=== PATIENT | male | born 1955 | race Caucasian/White ===

== ENCOUNTER 2022-02-19 02:01 | Day surgery (SDC) | payer MEDICARE, SELFPAY ==
[2022-02-11 11:31] VITALS: BMI 32.0
--- NOTE | 2022-02-18 17:11 | PM.HPGS ---
History of Present Illness History of Present Illness Consent: Risks, benefits, and alternatives have been discussed and questions answered. Patient agrees to proceed with procedure. Chief complaint: Hx of colon polyps Narrative: Bari Garcia is a 66 year old male Was referred for colon cancer screening. Three years ago he had a tubular adenoma removed from the descending colon Review of Systems Review of Systems: All systems reviewed & are unremarkable except as noted in HPI and below PMFSH Past Medical History Medical History Diabetes Hypothyroidism Obesity Osteoarthritis Social History Social History Smoking status: Never smoker Alcohol intake: current Drinks per week: 1 Substance use type: does not use Living arrangements: with family Spiritual care concerns: No Meds Home Medications and Allergies Home Medications Medication Instructions Recorded Confirmed Type cyanocobalamin (vitamin B-12) 1,000 mcg IM MONTHLY 02/11/22 02/19/22 History 1,000 mcg/mL injection solution levothyroxine 75 mcg tablet 75 mcg PO DAILY 02/11/22 02/19/22 History lovastatin 40 mg tablet 40 mg PO DAILY 02/11/22 02/19/22 History metformin 500 mg tablet,extended 500 mg PO DAILY 02/11/22 02/19/22 History release 24 hr Allergies Allergy/AdvReac Type Severity Reaction Status Date / Time No Known Allergies Allergy Verified 02/19/22 08:40 Exam Const: General: alert Orientation/consciousness: patient oriented x3 Resp: Auscultation: clear to auscultation bilaterally Cardio: Rhythm: regular rhythm GI: GI Palp: Yes Soft to palpation and No Tenderness to palpation present (GI) Neuro: General: patient oriented x3 Assessment and Plan Assessment and plan (1) Colon cancer screening: Code(s): Z12.11 - Encounter for screening for malignant neoplasm of colon Status: Acute Assessment and Plan: Please inform patient that the polyp(s) was/were the 'pre'-cancerous type. Colonoscopy should be repeated within 5 years
--- NOTE | 2022-02-19 08:07 | WPDANESEPPF ---
Anes - Initial Pre Proc Eval Procedure: Operation Date: 02/19/22 09:30 Proposed Procedures p Screening Colonoscopy - Nathaniel Luciano MD Date/Time: 02/19/22 08:07 Surgeon: Nathaniel Luciano MD Pre Op Diagnosis: Hx of colon polyps Patient Data Age: 66 Gender: M Height: 1.83 m Weight: 107 kg Allergies Allergy/AdvReac Type Severity Reaction Status Date / Time No Known Allergies Allergy Verified 02/19/22 08:40 Home Medications Medication Instructions Recorded Confirmed Type cyanocobalamin (vitamin B-12) 1,000 mcg IM MONTHLY 02/11/22 02/19/22 History 1,000 mcg/mL injection solution levothyroxine 75 mcg tablet 75 mcg PO DAILY 02/11/22 02/19/22 History lovastatin 40 mg tablet 40 mg PO DAILY 02/11/22 02/19/22 History metformin 500 mg tablet,extended 500 mg PO DAILY 02/11/22 02/19/22 History release 24 hr Patient hx anesthesia problems: none Family hx anesthesia problems: none Results Review: All pre-operative results and documents have been reviewed as part of the pre-operative evaluation. [facility] Past Medical History Medical History Diabetes Hypothyroidism Obesity Osteoarthritis Social History Social History Smoking status: Never smoker Alcohol intake: current Drinks per week: 1 Substance use type: does not use Living arrangements: with family Spiritual care concerns: No Anes - Eval Final PreProcedure Day of Procedure 02/19/22 08:07 Patient weight: obese Heart: regular rate and rhythm Lungs: clear to auscultation and normal air movement Airway: Mallampati scale class II Neurological: alert and oriented Last oral intake: >/= 8 hours ASA classification: III Emergent: no Anesthetic plan: proceed Anesthesia type and monitoring: general GIVS Results Review: All pre-operative results and documents have been reviewed as part of the pre-operative evaluation. Informed Consent: The patient's anesthetic plan and its attendant risks and benefits were discussed with the patient/family/POA. Questions were solicited and answers provided to the satisfaction of the patient/family/POA.
[2022-02-19 08:33] VITALS: BP 139/81; RESP 18; TEMP 35.9; O2SAT 99; BMI 31.4
[2022-02-19] MEDS: LACTATED RINGERS 1,000 ML 150 ML IV CONT (08:56)
[2022-02-19 09:02] LABS: Glucose Point of Care 151 mg/dl (65-105)
[2022-02-19] MEDS: SIMETHICONE ORAL SUSPENSION 20 MG/0.3 ML 30 ML BOTTLE 0.6 ML IRRIGATION (09:36)
[2022-02-19 09:48] VITALS: BP 105/70; PULSE 71; RESP 19; O2SAT 97
[2022-02-19 09:58] VITALS: BP 110/74; PULSE 77; RESP 18; O2SAT 95
[2022-02-19 10:08] VITALS: BP 129/87; PULSE 70; RESP 20; O2SAT 98
== END 2022-02-19 10:24 | disposition home or self-care (01) ==
PROVIDERS: PCP Family Medicine; Visit Provider Internal Medicine Gastroenterology
PROC: 0DJD8ZZ Inspection of Lower Intestinal Tract, Via Natural or Artificial Opening Endoscopic (ICD-10-PCS; CPT 45378; principal; 2022-02-19 09:30)
DX: Z12.11 Encounter for screening for malignant neoplasm of colon (principal); K57.30 Diverticulosis of large intestine without perforation or abscess without bleeding; D12.4 Benign neoplasm of descending colon; E11.9 Type 2 diabetes mellitus without complications; E03.9 Hypothyroidism, unspecified; E66.9 Obesity, unspecified; Z68.31 Body mass index [BMI] 31.0-31.9, adult; Z79.84 Long term (current) use of oral hypoglycemic drugs
CPT/HCPCS: 45385; 82948; 88305; J2704; J7120